=== PATIENT | female | born 1960 | race Caucasian/White ===

== ENCOUNTER 2016-10-20 06:30 | Day surgery (SDC) | payer OTHER ==
[2016-10-20] MEDS ORDERED: VANCOMYCIN HCL 1000 MG VIAL ONE ×2 (07:32→07:54)
[2016-10-20] MEDS ORDERED: ceFAZolin INJ 1,000 MG VIAL ONE (07:33)
[2016-10-20] MEDS ORDERED: MIDAZOLAM HCL 2 MG/2 ML VIAL ONE (07:52)
--- NOTE | 2016-10-20 08:01 | MA ---
cc: DEMARCUS MCFARLAND MD DATE 10/20/2016 PREPROCEDURE DIAGNOSIS Questionable atrial fibrillation. PROCEDURE PERFORMED 1. Moderate sedation 2. Loop recorder insertion DESCRIPTION OF PROCEDURE The patient was brought to the DOC unit in the postabsorptive state. After informed consent was obtained, 2 mg of Versed and 50 mcg of Fentanyl were given for moderate IV sedation. Next, a [employer] LIN[employer] loop recorder was inserted subcutaneously to the left chest. The patient tolerated the procedure well without any apparent complications. Initial R-wave was 0.33 mV. Tachybrady pause and atrial fibrillation detection was enabled. The serial number was [id number]. Demarcus Mcfarland MD PRERNA/SANAZ /7:55 AM /7:59 AM
[2016-10-20] MEDS ORDERED: diphenhydrAMINE HCL 50 MG/ML VIAL ONE (08:15)
[2016-10-20] MEDS ORDERED: VANCOMYCIN 1000 MG/NS 250 ML IV SCH ×2 (08:15)
[2016-10-20] MEDS ORDERED: ceFAZolin 2 GM PREMIX 50 ML IV SCH (08:15)
[2016-10-20] MEDS ORDERED: NS 1000 ML IV SCH (08:15)
[2016-10-20] MEDS ORDERED: POVIDONE IODINE 5% (ANTISEPSIS KIT) 4 APPLICATIONS EACH NARE SCH (08:15)
[2016-10-20] MEDS ORDERED: MUPIROCIN 2% OINT 1 APPLIC/GM SYR NASAL SCH (08:15)
[2016-10-20] MEDS ORDERED: Hold AM Insulin & AM Hypoglycemic medications in diabetic patients XX PRN (08:15)
[2016-10-20] MEDS ORDERED: CHLORHEXIDINE GLUCONATE 2 % 1 PACK (2 CLOTHS) TOP SCH (08:15)
[2016-10-20] MEDS ORDERED: VITA200012 PO (08:25)
[2016-10-20] MEDS ORDERED: ESTR1TAB PO (08:25)
[2016-10-20] MEDS ORDERED: HYDROCORTISONE SOD SUCCINATE 100 MG VIAL ONE (08:37)
== END 2016-10-20 09:49 | disposition home or self-care (01) ==
LOC: HCAT 06:30 → HDIC 06:31 → HCAT 09:49
PROVIDERS: ATTEND Nuclear Medicine Nuclear Cardiology
DX: I48.91 Unspecified atrial fibrillation (principal); I47.1 Supraventricular tachycardia; E78.2 Mixed hyperlipidemia
CPT/HCPCS: 33282; C1764; J0690; J1200; J1720; J2250; J3010; J3370